=== PATIENT | female | born 1975 | race African-American/Black ===

== ENCOUNTER 2018-06-05 20:15 | Emergency (ER) | payer MEDICAID ==
[~2018-06-05] VITALS: Ht 182.9 cm; Wt 75.0 kg
[2018-06-05] MEDS ORDERED: HYDROCODONE/ACETAMINOPHEN 5/325MG TABLET PO STA (23:18)
[2018-06-06] MEDS ORDERED: HYDROCODONE/ACETAMINOPHEN 5/325MG TABLET PO STA (01:44)
[2018-06-06 02:41] VITALS: BP 127/73
== END 2018-06-06 02:43 | disposition home or self-care (01) ==
LOC: ER 20:15
DX: S00.83XA Contusion of other part of head, initial encounter (principal); S16.1XXA Strain of muscle, fascia and tendon at neck level, initial encounter; S39.012A Strain of muscle, fascia and tendon of lower back, initial encounter; V49.49XA Driver injured in collision with other motor vehicles in traffic accident, initial encounter; Y93.89 Activity, other specified; Y92.89 Other specified places as the place of occurrence of the external cause; Y99.8 Other external cause status
CPT/HCPCS: 72100; 73030; 81025; 99284

== ENCOUNTER 2018-08-01 12:50 | Emergency (ER) | payer MEDICAID ==
[~2018-08-01] VITALS: Ht 185.4 cm; Wt 87.0 kg
[2018-08-01] MEDS ORDERED: IBUPROFEN 800MG TABLET PO ONE ×2 (16:30→18:30)
[2018-08-01 18:49] VITALS: BP 122/84
== END 2018-08-01 18:49 | disposition home or self-care (01) ==
LOC: ER 12:50
DX: S40.012A Contusion of left shoulder, initial encounter (principal); S00.83XA Contusion of other part of head, initial encounter; V49.88XA Car occupant (driver) (passenger) injured in other specified transport accidents, initial encounter; Y93.89 Activity, other specified; Y92.89 Other specified places as the place of occurrence of the external cause; Y99.8 Other external cause status
CPT/HCPCS: 73030; 99283; Z7610

== ENCOUNTER 2020-11-12 01:29 | Emergency (ER) | payer MEDICAID ==
[~2020-11-12] VITALS: Ht 185.4 cm; Wt 83.0 kg
[2020-11-12 01:46] VITALS: BP 148/86
== END 2020-11-12 03:17 | disposition left against medical advice (07) ==
LOC: ER 01:29
DX: Z53.21 Procedure and treatment not carried out due to patient leaving prior to being seen by health care provider (principal)